=== PATIENT | female | born 1995 | race American Indian/Alaskan Native ===

== ENCOUNTER 2016-11-07 15:36 | Emergency (ER) | payer SELFPAY ==
--- NOTE | 2016-11-07 17:04 | Emergency Department Report ---
<NAPOLEONMELL M - Last Filed: 11/07/16 19:12> ED Female HPI - General Chief complaint: Urogenital-Female Stated complaint: POSS /VAG ITCHING/VAG PAIN Time Seen by Provider: 11/07/16 16:47 Source: patient Mode of arrival: Ambulatory Limitations: No Limitations - History of Present Illness Initial comments: PT states she is afraid she is . PT states her period is a few days late. PT states she is having thin white vaginal discharge with an odor. PT also reports rash to vagina and vagina pain. PT states her symptoms started shortly after applying deodorant to her vagina. PT states she did this so she would not sweat. PT c/o 02/14 vaginal pain PT denies hx of pelvic infections PT denies partner having symptoms MD Complaint: vaginal discharge Onset/Timin -: Gradual, week(s) Location: labia Severity: severe Severity scale (0 -10): 10 Quality: burning Consistency: constant Improves with: none Worsens with: none Are you Now?: Yes (possible ) Last Menstrual Period: 10/02/16 EDC: 07/09/17 Associated Symptoms: vaginal discharge, rash. denies: abdominal pain, nausea/ vomiting, loss of appetite, dysuria - Related Data Sexually active: Yes : 3 Para: 1 Previous Rx's Medication Instructions Recorded Last Taken Type Vit No.130/Iron/FA 1 each PO QDAY #30 tablet 11/07/16 Unknown Rx [ Tablet] Allergies Allergy/AdvReac Type Severity Reaction Status Date / Time No Known Allergies Allergy Unverified 11/07/16 16:02 ED Review of Systems ROS: Stated complaint: POSS /VAG ITCHING/VAG PAIN Other details as noted in HPI Comment: All other systems reviewed and negative Constitutional: denies: chills, fever Gastrointestinal: denies: abdominal pain, nausea, vomiting Genitourinary: discharge, abnormal menses. denies: dysuria Skin: rash ED Past Medical Hx - Past Medical History Previous Medical History?: No - Surgical History Past Surgical History?: No - Social History Smoking Status: Never Smoker Substance Use Type: Alcohol, Non Opiate Pain - Medications Home Medications: Home Medications Medication Instructions Recorded Confirmed Last Taken Type Vit No.130/Iron/FA 1 each PO QDAY #30 tablet 11/07/16 Unknown Rx [ Tablet] ED Physical Exam - General Limitations: No Limitations General appearance: alert, in no apparent distress, obese - Head Head exam: Present: atraumatic, normocephalic, normal inspection - Eye Eye exam: Present: normal appearance, PERRL, EOMI. Absent: conjunctival injection - ENT ENT exam: Present: normal exam, mucous membranes moist, normal external ear exam - Neck Neck exam: Present: normal inspection, full ROM. Absent: tenderness, lymphadenopathy - Respiratory Respiratory exam: Present: normal lung sounds bilaterally. Absent: respiratory distress, wheezes, chest wall tenderness - Cardiovascular Cardiovascular Exam: Present: regular rate, normal rhythm, normal heart sounds - GI/Abdominal GI/Abdominal exam: Present: soft, normal bowel sounds. Absent: tenderness - External exam: Present: lesions (1 lesion noted to labia. 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 ). Absent: erythema, swelling, lacerations, ecchymosis, bleeding Speculum exam: Present: vaginal discharge. Absent: cervical discharge, vaginal bleeding, foreign body Bi-manual exam: Present: normal bi-manual exam. Absent: cervical motion tendernes, adnexal tenderness, adnexal mass, uterine enlargement, uterine tenderness - Extremities Exam Extremities exam: Present: normal inspection, full ROM - Back Exam Back exam: Present: normal inspection, full ROM. Absent: tenderness, CVA tenderness (R), CVA tenderness (L) - Neurological Exam Neurological exam: Present: alert, oriented X3, normal gait - Psychiatric Psychiatric exam: Present: normal affect, normal mood - Skin Skin exam: Present: warm, dry, intact. Absent: vesicles ED Course Vital Signs 11/07/16 11/07/16 16:02 21:07 Temperature 98.4 F Pulse Rate 87 75 Respiratory 20 18 Rate Blood Pressure 114/73 Blood Pressure 125/64 [Left] O2 Sat by Pulse 100 100 Oximetry - Reevaluation(s) Reevaluation #1: 11/07/16 17:05 PT aware of plan of care Reevaluation #2: 11/07/16 18:21 PT aware of urine result and plan of care. Reevaluation #3: 11/07/16 19:13 EDWIN Cespedes to follow beta quant, CMP and US - Pulse Oximetry Interpretation Digit-Finger Initial Pulse Oximetry Readin Actions Taken: none ED Medical Decision Making - Lab Data Result diagrams: 11/07/16 18:31 - Differential Diagnosis , std, vaginitis Critical care attestation.: If time is entered above; I have spent that time in minutes in the direct care of this critically ill patient, excluding procedure time. ED Disposition Clinical Impression: Vaginal discharge, Lesion of labia, Positive test, Threatened miscarriage in early , Ovarian cyst, Abdominal pain during in first trimester Disposition: - TO HOME OR SELFCARE Condition: Stable Instructions: Threatened Miscarriage (ED), (ED), Ovarian Cyst (ED), Abdominal Pain in (ED) Additional Instructions: Do not apply deodorant to your labia Please return to the emergency room if he cannot get appointment with [facility] doctor in 5-7 days for repeat ultrasound and blood work. Please call [facility] to schedule an appointment. take vitamin. Prescriptions: Vit No.130/Iron/FA [ Tablet] 1 each PO QDAY #30 tablet Referrals: PRIMARY CAREMD [Primary Care Provider] - 3-5 Days NICOLETTE PEACE MD [Staff Physician] - 3-5 Days [facility] [Outside] - 3-5 Days Forms: Work/School Release Form(ED) <STIVEN RAMOS - Last Filed: 11/08/16 07:31> ED Course - Reevaluation(s) Reevaluation #4: 11/07/16 21:01 I spoke with patient regarding ultrasound results and the need to return in 5-7 days to have repeat ultrasound and lab work done. Aware that there are statuses threatened miscarriage. I also started updated her on right ovarian cyst. ED Medical Decision Making - Lab Data Result diagrams: 11/07/16 18:31 11/07/16 18:31 Lab Results 11/07/16 11/07/16 11/07/16 Range/Units 17:45 18:19 18:31 WBC 5.3 (4.5-11.0) K/mm3 RBC 4.73 (3.65-5.03) M/mm3 Hgb 12.7 (10.1-14.3) gm/dl Hct 38.8 (30.3-42.9) % MCV 82 (79-97) fl MCH 27 L (28-32) pg MCHC 33 (30-34) % RDW 13.9 (13.2-15.2) % Plt Count 218 (140-440) K/mm3 Lymph % (Auto) 32.3 (13.4-35.0) % Atlantic % (Auto) 10.9 H (0.0-7.3) % Eos % (Auto) 2.0 (0.0-4.3) % Baso % (Auto) 1.1 (0.0-1.8) % Lymph # 1.7 (1.2-5.4) K/mm3 Atlantic # 0.6 (0.0-0.8) K/mm3 Eos # 0.1 (0.0-0.4) K/mm3 Baso # 0.1 (0.0-0.1) K/mm3 Seg Neutrophils % 53.7 (40.0-70.0) % Seg Neutrophils # 2.9 (1.8-7.7) K/mm3 Sodium (137-145) mmol/L Potassium (3.6-5.0) mmol/L Chloride (98-107) mmol/L Carbon Dioxide (22-30) mmol/L Anion Gap mmol/L BUN (7-17) mg/dL Creatinine (0.7-1.2) mg/dL Estimated GFR ml/min BUN/Creatinine Ratio % Glucose (65-100) mg/dL Calcium (8.4-10.2) mg/dL Total Bilirubin (0.1-1.2) mg/dL AST (5-40) units/L ALT (7-56) units/L Alkaline Phosphatase (35-129) units/L Total Protein (6.3-8.2) g/dL Albumin (3.9-5) g/dL Albumin/Globulin Ratio % HCG, Quant (0-4) mIU/mL Urine Color Yellow (Yellow) Urine Turbidity Clear (Clear) Urine pH 6.0 (5.0-7.0) Ur Specific [place] 1.025 (1.003-1.030) Urine Protein <15 mg/dl (Negative) mg/dL Urine Glucose (UA) Neg (Negative) mg/dL Urine Ketones Neg (Negative) mg/dL Urine Blood Neg (Negative) Urine Nitrite Neg (Negative) Ur Reducing Substances Not Reportable Urine Bilirubin Neg (Negative) Urine Ictotest Not Reportable Urine Urobilinogen 4.0 (<2.0) mg/dL Ur Leukocyte Esterase Tr (Negative) Urine WBC (Auto) 3.0 (0.0-6.0) /HPF Urine RBC (Auto) 6.0 (0.0-6.0) /HPF U Epithel Cells (Auto) 12.0 (0-13.0) /HPF Urine Mucus 3+ /HPF Urine HCG, Qual Positive A (Negative) Blood Type O POSITIVE 11/07/16 11/07/16 Range/Units 18:31 18:31 WBC (4.5-11.0) K/mm3 RBC (3.65-5.03) M/mm3 Hgb (10.1-14.3) gm/dl Hct (30.3-42.9) % MCV (79-97) fl MCH (28-32) pg MCHC (30-34) % RDW (13.2-15.2) % Plt Count (140-440) K/mm3 Lymph % (Auto) (13.4-35.0) % Atlantic % (Auto) (0.0-7.3) % Eos % (Auto) (0.0-4.3) % Baso % (Auto) (0.0-1.8) % Lymph # (1.2-5.4) K/mm3 Atlantic # (0.0-0.8) K/mm3 Eos # (0.0-0.4) K/mm3 Baso # (0.0-0.1) K/mm3 Seg Neutrophils % (40.0-70.0) % Seg Neutrophils # (1.8-7.7) K/mm3 Sodium 138 (137-145) mmol/L Potassium 3.6 (3.6-5.0) mmol/L Chloride 101.7 (98-107) mmol/L Carbon Dioxide 21 L (22-30) mmol/L Anion Gap 19 mmol/L BUN 9 (7-17) mg/dL Creatinine 0.5 L (0.7-1.2) mg/dL Estimated GFR > 60 ml/min BUN/Creatinine Ratio 18.00 % Glucose 81 (65-100) mg/dL Calcium 8.7 (8.4-10.2) mg/dL Total Bilirubin 0.40 (0.1-1.2) mg/dL AST 15 (5-40) units/L ALT 16 (7-56) units/L Alkaline Phosphatase 49 (35-129) units/L Total Protein 7.3 (6.3-8.2) g/dL Albumin 4.3 (3.9-5) g/dL Albumin/Globulin Ratio 1.4 % HCG, Quant 4044 H (0-4) mIU/mL Urine Color (Yellow) Urine Turbidity (Clear) Urine pH (5.0-7.0) Ur Specific [place] (1.003-1.030) Urine Protein (Negative) mg/dL Urine Glucose (UA) (Negative) mg/dL Urine Ketones (Negative) mg/dL Urine Blood (Negative) Urine Nitrite (Negative) Ur Reducing Substances Urine Bilirubin (Negative) Urine Ictotest Urine Urobilinogen (<2.0) mg/dL Ur Leukocyte Esterase (Negative) Urine WBC (Auto) (0.0-6.0) /HPF Urine RBC (Auto) (0.0-6.0) /HPF U Epithel Cells (Auto) (0-13.0) /HPF Urine Mucus /HPF Urine HCG, Qual (Negative) Blood Type Wet prep revealed no clue cell not trichomonas and no yeast chl is pending - Radiology Data Radiology results: report reviewed Ultrasound OB transvaginal and pelvic reveal patient with possible early IUP at 5 weeks and 4 days gestation age estimated date of delivery based on this regimen is July 06, 2017. pole was not yet identified and viability is uncertain. There is 1.1 cm implantation bleed. Recommend 5-7 days repeat ultrasound and beta hCG. Patient with right ovarian complex cyst in left ovary is normal - Medical Decision Making ED course: Patient notified of ultrasound report and status. I informed her that she needs to return to hospital in 5-7 days to have repeat ultrasound and repeat hormone tests done. Slit for her that she has cyst on her right ovary. pT denies any pain at present and said she will find out [facility] doctor to follow-up with. I discussed with her she cannot find OB/ SECURITIES ATTORNEY within 5-7 days she needs to come back to the emergency room for repeat ultrasound and blood work. Voice understanding and discharged home in stable condition. ED Disposition Is pt being admited?: No Does the pt Need Aspirin: No
[2016-11-07 18:14] LABS: Bilirubin,Urine NEG (Negative); Blood,Urine NEG (Negative); Ketones,Urine NEG (Negative); Leukocyte Esterase,Urine TR (Negative); Mucus,Urine 3+ /HPF; Nitrite,Urine NEG (Negative); Protein,Urine <15 mg/dL mg/dL (Negative)
[2016-11-07 19:09] LABS: Basophils % (Auto) 1.1 % (0.0-1.8); Hematocrit 38.8 % (30.3-42.9); Hemoglobin 12.7 gm/dl (10.1-14.3); Mean Corpuscular HGB Conc 33 % (30-34); Mean Corpuscular Hemoglobin 27 pg (28-32); Mean Corpuscular Volume 82 fl (79-97); Platelet Count 218 K/mm3 (140-440); Red Blood Count 4.73 M/mm3 (3.65-5.03); Red Cell Distribution Width 13.9 % (13.2-15.2); White Blood Count 5.3 K/mm3 (4.5-11.0)
[2016-11-07 19:16] LABS: Alanine Aminotransferase 16 units/L (7-56); Albumin 4.3 g/dL (3.9-5); Albumin/Globulin Ratio 1.4 %; Alkaline Phosphatase 49 units/L (35-129); Anion Gap 19 mmol/L; Blood Urea Nitrogen 9 mg/dL (7-17); Calcium 8.7 mg/dL (8.4-10.2); Carbon Dioxide 21 mmol/L (22-30); Chloride 101.7 mmol/L (98-107); Glucose 81 mg/dL (65-100); Potassium 3.6 mmol/L (3.6-5.0); Sodium 138 mmol/L (137-145); Total Protein 7.3 g/dL (6.3-8.2)
--- NOTE | 2016-11-07 19:56 | Ultrasound Report ---
FINAL REPORT PROCEDURE: US OB TRANSVAGINAL TECHNIQUE: Real-time transabdominal and transvaginal sonography of the uterus, placenta, amniotic fluid, adnexa, and fetus was performed with image documentation. Measurements were obtained to determine age/size. M-mode Doppler was used to document heartbeat. CPT 84218 and 29129 HISTORY: , pain COMPARISON: No prior studies are available for comparison. FINDINGS: ADDITIONAL GESTATION: None. There is suggestion of a slightly irregular shaped gestational sac with yolk sac. Mean sac diameter is 8.1 millimeters corresponding to 5 weeks 4 days gestational age. Implantation bleed is seen adjacent to this area measuring approximately 1.1 cm in greatest dimension. pole is not yet identified and viability is uncertain. Right ovary measures 3.2 x 2.1 x 2.9 cm. It contains a 2.5 cm complex cyst. Left ovary measures 3.3 x 1.5 x 1.7 cm. No free pelvic fluid is seen. IMPRESSION: Possible early IUP is seen at 5 weeks 4 days gestational age. Estimated date of delivery based on this measurement is July 06, 2017. However, pole is not yet identified and viability is uncertain. Furthermore, there is a 1.1 cm implantation bleed. Correlation with serial quantitative beta HCG levels is recommended and repeat ultrasound in 5-7 days is suggested.
--- NOTE | 2016-11-07 19:58 | Ultrasound Report ---
FINAL REPORT PROCEDURE: US OB \T\lt; = 14 WEEKS FETUS TECHNIQUE: Real-time transabdominal and transvaginal sonography of the uterus, placenta, amniotic fluid, adnexa, and fetus was performed with image documentation. Measurements were obtained to determine age/size. M-mode Doppler was used to document heartbeat. CPT 92648 and 97583 HISTORY: , pain COMPARISON: No prior studies are available for comparison. FINDINGS: ADDITIONAL GESTATION: None. There is suggestion of a slightly irregular shaped gestational sac with yolk sac. Mean sac diameter is 8.1 millimeters corresponding to 5 weeks 4 days gestational age. Implantation bleed is seen adjacent to this area measuring approximately 1.1 cm in greatest dimension. pole is not yet identified and viability is uncertain. Right ovary measures 3.2 x 2.1 x 2.9 cm. It contains a 2.5 cm complex cyst. Left ovary measures 3.3 x 1.5 x 1.7 cm. No free pelvic fluid is seen. IMPRESSION: Possible early IUP is seen at 5 weeks 4 days gestational age. Estimated date of delivery based on this measurement is July 06, 2017. However, pole is not yet identified and viability is uncertain. Furthermore, there is a 1.1 cm implantation bleed. Correlation with serial quantitative beta HCG levels is recommended and repeat ultrasound in 5-7 days is suggested.
[2016-11-07 21:07] VITALS: BP 125/64
== END 2016-11-07 21:08 | disposition home or self-care (01) ==
LOC: ED 15:36
DX: O20.0 Threatened abortion (principal); O34.81 Maternal care for other abnormalities of pelvic organs, first trimester; N83.201 Unspecified ovarian cyst, right side; Z3A.01 Less than 8 weeks gestation of pregnancy
CPT/HCPCS: 36415; 76801; 76817; 80053; 81001; 81025; 84702; 85025; 86900; 86901; 87210; 87255; 87591; 99284

== ENCOUNTER 2016-12-10 19:09 | Emergency (ER) | payer OTHER ==
[2016-12-10 19:46] VITALS: BP 113/70
[2016-12-10] MEDS ORDERED: BENADRYL PO ONE (20:35)
--- NOTE | 2016-12-10 20:43 | Emergency Department Report ---
ED Rash HPI - HPI Chief Complaint: Skin Rash Stated Complaint: RASH/ 10 PREG Time Seen by Provider: 12/10/16 20:07 Duration: 2weeks Location: Neck, Back, Upper Extremities, Lower Extremities Rash Symptoms: Yes Itching, No Facial Swelling, No Tongue/Oral Swelling, No Breathing Difficulties, No Choking Sensation, No Wheezing/Dyspnea, No Peeling, No Blistering, No Fever, No Lightheaded, No Malaise, No Myalgias Severity: mild Other History: 21-year-old female past medical history obesity presents with complaint of several weeks approximately 1 month of itchiness and itchy rash to abdomen back upper and lower extremities. Patient has not been taking any medicines for the itchiness or discomfort. Denies any fevers or chills denies any dysuria or vaginal discharge no vaginal bleeding. Patient is currently 10 weeks . States she has not followed up with her [facility]ATING MECH[facility]IC. Also complaining of some lower abdominal discomfort. ED Review of Systems ROS: Stated complaint: RASH/ 10 PREG Other details as noted in HPI Constitutional: denies: chills, fever Eyes: denies: eye pain, eye discharge, vision change ENT: denies: ear pain, throat pain Respiratory: denies: cough, shortness of breath, wheezing Cardiovascular: denies: chest pain, palpitations Endocrine: no symptoms reported Gastrointestinal: denies: abdominal pain, nausea, diarrhea Genitourinary: denies: urgency, dysuria, discharge Musculoskeletal: denies: back pain, joint swelling, arthralgia Skin: as per HPI, rash, pruritus. denies: lesions Neurological: denies: headache, weakness, paresthesias Psychiatric: denies: anxiety, depression Hematological/Lymphatic: denies: easy bleeding, easy bruising ED Past Medical Hx - Past Medical History Previous Medical History?: No - Surgical History Past Surgical History?: No - Social History Smoking Status: Never Smoker Substance Use Type: None - Medications Home Medications: Home Medications Medication Instructions Recorded Confirmed Last Taken Type Vit No.130/Iron/FA 1 each PO QDAY #30 tablet 11/07/16 Unknown Rx [ Tablet] Clotrimazole 1% [Lotrimin 1%] 15 gm TP BID PRN #1 tube 12/10/16 Unknown Rx Hydrocortisone 1% [Hydrocortisone 1 applicatio TP TID PRN #1 tube 12/10/16 Unknown Rx 1% CREAM] Nitrofurantoin [place]/M-Cryst 100 mg PO Q12HR #14 capsule 12/10/16 Unknown Rx [Macrobid CAP] Potassium Chloride [K-Dur] 20 meq PO BID #4 tab 12/10/16 Unknown Rx diphenhydrAMINE [Benadryl CAP] 25 mg PO Q8HR PRN #20 capsule 12/10/16 Unknown Rx Rash Exam - Exam General: Vital signs noted. No distress. Alert and acting appropriately. HEENT: No Periorbital Edema, No Conjuctival Injection, No Chemosis, No Perioral Edema, No Tongue Edema, No Uvular Edema, No Compromised Airway, No Drooling Lungs: Yes Good Air Exchange (Normal Breath Sounds), No Wheezes, No Ronchi, No Stridor, No Cough, No Labored Respirations, No Retractions, No Use of Accessory Muscles, No Other Abnormal Lung Sounds Heart: Yes Regular, No Murmur Skin: Yes Maculopapular Rash (evidence of tinea corporis on abdomen), No Urticarial Rash, No Morbilliform rash, No Bulla(e), No Excoriations, No Weeping , No Tenderness, No Erythema, No Edema, No Encrustations, No Other Other: Positive: Abdomen Normal, Neurologic Normal, Musculoskeletal Normal ED Course Vital Signs 12/10/16 19:37 Temperature 97.9 F Pulse Rate 85 Respiratory 16 Rate Blood Pressure 113/70 Blood Pressure 113/70 [Left] O2 Sat by Pulse 100 Oximetry ED Medical Decision Making - Lab Data Result diagrams: 12/10/16 20:50 12/10/16 20:50 - Medical Decision Making A/P: Pruritus of , morning sickness, tinea corporis, hypokalemia, possible asymptomatic bacteriuria 1-Benadryl when necessary, topical hydrocortisone, I advised patient to have her potassium rechecked within the next week and to consume foods and liquids which and potassium 2-clotrimazole cream 3-follow up with [facility]CH[facility] 4-Macrobid twice a day 7 days, urine has large leukocytes 5-patient had wet prep and Chlamydia gonorrhea test which were -72 hours ago. Ultrasound shows normal fetus at 10 weeks Critical care attestation.: If time is entered above; I have spent that time in minutes in the direct care of this critically ill patient, excluding procedure time. ED Disposition Clinical Impression: Morning sickness pruritus Qualifiers: Trimester: first trimester Qualified Code(s): O99.711 - Diseases of the skin and subcutaneous tissue complicating , first trimester Disposition: TO HOME OR SELFCARE Is pt being admited?: No Does the pt Need Aspirin: No Condition: Stable Instructions: Morning Sickness (ED), Tinea Corporis (ED), Itchy Skin (ED) Prescriptions: Clotrimazole 1% [Lotrimin 1%] 15 gm TP BID PRN #1 tube PRN Reason: Itching diphenhydrAMINE [Benadryl CAP] 25 mg PO Q8HR PRN #20 capsule PRN Reason: Itching Hydrocortisone 1% [Hydrocortisone 1% CREAM] 1 applicatio TP TID PRN #1 tube PRN Reason: Itching Nitrofurantoin [place]/M-Cryst [Macrobid CAP] 100 mg PO Q12HR #14 capsule Potassium Chloride [K-Dur] 20 meq PO BID #4 tab Referrals: [facility] [Provider Group] - 3-5 Days DIONICIO BARRETO MD [Staff Physician] - 3-5 Days Forms: Work/School Release Form(ED) Time of Disposition: 22:45
[2016-12-10 21:22] LABS: Basophils % (Auto) 0.2 % (0.0-1.8); Eosinophils % (Auto) 6.1 % (0.0-4.3); Hematocrit 36.2 % (30.3-42.9); Hemoglobin 11.9 gm/dl (10.1-14.3); Mean Corpuscular HGB Conc 33 % (30-34); Mean Corpuscular Hemoglobin 27 pg (28-32); Mean Corpuscular Volume 83 fl (79-97); Platelet Count 184 K/mm3 (140-440); Red Blood Count 4.39 M/mm3 (3.65-5.03); Red Cell Distribution Width 13.8 % (13.2-15.2); White Blood Count 5.1 K/mm3 (4.5-11.0)
[2016-12-10 21:24] LABS: Alanine Aminotransferase 10 units/L (7-56); Albumin 3.7 g/dL (3.9-5); Albumin/Globulin Ratio 1.2 %; Alkaline Phosphatase 40 units/L (35-129); Anion Gap 16 mmol/L; BUN/Creatinine Ratio 11.66; Blood Urea Nitrogen 7 mg/dL (7-17); Calcium 8.6 mg/dL (8.4-10.2); Carbon Dioxide 22 mmol/L (22-30); Chloride 102.3 mmol/L (98-107); Creatine Kinase 80 units/L (30-135); Glucose 98 mg/dL (65-100); Potassium 3.1 mmol/L (3.6-5.0); Sodium 137 mmol/L (137-145); Total Protein 6.8 g/dL (6.3-8.2)
[2016-12-10 21:48] LABS: Bilirubin,Direct < 0.2 mg/dL (0-0.2); Bilirubin,Indirect 0.1 mg/dL
[2016-12-10] MEDS ORDERED: REGLAN PO ONE (22:07)
[2016-12-10 22:25] LABS: Bacteria,Urine 1+ /HPF (Negative); Bilirubin,Urine NEG (Negative); Blood,Urine NEG (Negative); Ketones,Urine NEG (Negative); Leukocyte Esterase,Urine TR (Negative); Mucus,Urine 3+ /HPF; Nitrite,Urine NEG (Negative); Protein,Urine <15 mg/dL mg/dL (Negative)
--- NOTE | 2016-12-10 22:34 | Ultrasound Report ---
FINAL REPORT PROCEDURE: US OB TRANSVAGINAL TECHNIQUE: Real-time transvaginal sonography of the uterus, placenta, amniotic fluid, adnexa, and fetus was performed with image documentation. Measurements were obtained to determine age/size. M-mode Doppler was used to document heartbeat. CPT 34997 HISTORY: abdominal pain COMPARISON: No prior studies are available for comparison. FINDINGS: CRL: 30.9mm, which corresponds to a gestational age of: 10weeks, 0 days. Yolk Sac: Normal. Embryonic Cardiac Activity: 158 beats per minute Gestational Sac: Normal. Right Ovary: 2.7 x 2.4 x 2.1 centimeters with normal appearance Left Ovary: 2.8 x 1.7 x 2.1 centimeters with normal appearance Estimated delivery date: 07/08/2017 Comment: Complete anatomic survey at 18-20 weeks suggested. IMPRESSION: 1. Single living intrauterine gestation at approximately 10 weeks and 0 days 2. EDC by US 07/08/2017.
--- NOTE | 2016-12-10 22:34 | Ultrasound Report ---
FINAL REPORT PROCEDURE: US OB \T\lt; = 14 WEEKS FETUS TECHNIQUE: Real-time transabdominal sonography of the uterus, placenta, amniotic fluid, adnexa, and fetus was performed with image documentation. Measurements were obtained to determine age/size. M-mode Doppler was used to document heartbeat. CPT 36537 HISTORY: abdominal pain COMPARISON: No prior studies are available for comparison. FINDINGS: CRL: 30.9 mm, which corresponds to a gestational age of: 10 weeks, 0 days. Yolk Sac: Normal. Embryonic Cardiac Activity: 158 beats per minute Gestational Sac: Normal. Amniotic fluid: Normal. Cervix: Normal. Right Ovary: Not well visualized Left Ovary: Not well visualized Estimated delivery date: 07/08/2017 Uterus and adnexa: Normal. IMPRESSION: Single live intrauterine gestation at approximately 10 weeks and 0 days. EDC by US 07/08/2017
[2016-12-10] MEDS ORDERED: K-DUR PO ONE (22:40)
== END 2016-12-10 23:32 | disposition home or self-care (01) ==
LOC: ED 19:09
DX: O26.891 Other specified pregnancy related conditions, first trimester (principal); L29.9 Pruritus, unspecified; Z3A.10 10 weeks gestation of pregnancy
CPT/HCPCS: 36415; 76801; 76817; 80048; 80074; 81001; 82550; 84702; 85025; 99284

== ENCOUNTER 2018-05-20 11:04 | Emergency (ER) | payer SELFPAY ==
[2018-05-20 11:13] VITALS: BP 110/64
[2018-05-20] MEDS ORDERED: IBUPROFEN ONE (11:28)
--- NOTE | 2018-05-20 11:34 | Emergency Department Report ---
HPI - General Chief Complaint: Medical Clearance Time Seen by Provider: 05/20/18 11:21 - HPI HPI: This is a 23-year-old female well-nourished well-developed in no acute distress. Patient's ear completely and in no lumps behind her ears and at the size of her neck. She states she was diagnosed with enlarged lymph nodes. She has not taken any medication. Patient presents to the emergency room stating that she wants to make sure it is not cancer. Pain is toward a 10 on a with touch no pain without touch. Denies any fever or chills or nausea or vomiting. Denies any earache or headache. Denies any nasal congestion or runny nose denies any shortness of breath or chest pain. She reports that she has night sweats. She appeared was 04/27/2018. She reports sore throats at 2/10. No medication taken prior to coming to the emergency room. Pain is worse with swallowing and no alleviating factors. Denies any recent weight loss for the last 3 months. ED Past Medical Hx - Past Medical History Previous Medical History?: No - Surgical History Past Surgical History?: No - Family History Family history: hypertension - Social History Smoking Status: Never Smoker Substance Use Type: None - Medications Home Medications: Home Medications Medication Instructions Recorded Confirmed Last Taken Type Vit No.130/Iron/Folic 1 each PO QDAY #30 tablet 11/07/16 Unknown Rx [ Tablet] Clotrimazole 1% [Lotrimin 1%] 15 gm TP BID PRN #1 tube 12/10/16 Unknown Rx Hydrocortisone 1% [Hydrocortisone 1 applicatio TP TID PRN #1 tube 12/10/16 Unknown Rx 1% CREAM] Nitrofurantoin [place]/M-Cryst 100 mg PO Q12HR #14 capsule 12/10/16 Unknown Rx [Macrobid CAP] Potassium Chloride [K-Dur] 20 meq PO BID #4 tab 12/10/16 Unknown Rx diphenhydrAMINE [Benadryl CAP] 25 mg PO Q8HR PRN #20 capsule 12/10/16 Unknown Rx Amoxicillin [Amoxicillin TAB] 875 mg PO BID 10 Days #20 tablet 05/20/18 Unknown Rx Cetirizine HCl [ZyrTEC] 10 mg PO QAM 14 Days #14 capsule 05/20/18 Unknown Rx Fluticasone [Flonase] 1 spray NS QDAY 14 Days #1 bottle 05/20/18 Unknown Rx Ibuprofen [Motrin] 800 mg PO Q8HR PRN #12 tablet 05/20/18 Unknown Rx ED Review of Systems ROS: Stated complaint: PAINFUL LUMP BEHIND EAR AND NECK Other details as noted in HPI Constitutional: denies: chills, fever Eyes: denies: eye discharge ENT: throat pain. denies: ear pain, congestion Respiratory: denies: cough, shortness of breath, SOB with exertion, SOB at rest, stridor, wheezing Cardiovascular: denies: chest pain, palpitations, dyspnea on exertion, edema, syncope, paroxysmal nocturnal dyspnea Gastrointestinal: denies: abdominal pain, nausea, vomiting, constipation, hematemesis, hematochezia Genitourinary: denies: urgency, dysuria, hematuria, abnormal menses, dyspareunia Musculoskeletal: denies: back pain, joint swelling, arthralgia, myalgia Skin: denies: rash Neurological: denies: headache, numbness, paresthesias, abnormal gait, vertigo Physical Exam - Physical Exam Vital Signs: Vital Signs 05/20/18 11:09 Temperature 98.2 F Pulse Rate 90 Respiratory 16 Rate Blood Pressure 110/64 O2 Sat by Pulse 99 Oximetry General: This is a 23-year-old female well-nourished well-developed in no acute distress. Physical Exam: Head: Normocephalic atraumatic Ears:BIateral TM congested without erythema and loss of bony landmarks. Hua EAC with normal exam. No mastoid bone tenderness. Lymph nodes: Positive lymphadenopathy to posterior articular, posterior occipital and bilateral neck. Tenderness to palpate. Mouth: Moist, pharyngeal erythema without exudate . UVULA midline and oral airways patent. No peritonsillar abscess Neck: Nontender to palpate, supple, normal range of motion. Positive adenopathy. No c-spine tenderness. Nose: Bilateral nasal mucosa congested/erythema with clear drainage. Maxillary and frontal sinuses non-tender to palpate. Eyes: Bilateral Sclerae and conjunctiva without injection. Bilateral pupils equal and reactive to light. Bilateral lids are normal. Normal accommodation.BEOMI Lungs: Clear to auscultate bilaterally, no rhonchi wheezes or rales. Normal work of breathing and no chest wall tenderness CV: S1, S2. Regular rate and rhythm negative murmur. Capillary refill is less than 3 seconds Abdomen: Nontender to palpation in all quadrants: No guarding or rebound tenderness. Positive bowel sounds in all quadrants Extremity: No clubbing, cyanosis or edema. +2 pulses in all extremities and no neurovascular compromise Skin: Clean dry and intact, no rashes or lesions Psych: Normal mood and behavior ED Course Vital Signs 05/20/18 11:09 Temperature 98.2 F Pulse Rate 90 Respiratory 16 Rate Blood Pressure 110/64 O2 Sat by Pulse 99 Oximetry - Reevaluation(s) Reevaluation #1: 05/20/18 12:36 Patient given Motrin 800 mg by mouth and emergency room. Rapid strep is negative ED Medical Decision Making - Lab Data Lab Results 05/20/18 Range/Units 11:30 Group A Strep Rapid Negative (Negative) - Medical Decision Making This is a 23-year-old female here report that she has enlarged lymph nodes which she was diagnosed with an another facility but she does not have any primary care doctor nor does she have health insurance. She says she is here to be checked to see if she has cancer. I discussed the patient that her shortness is negative cultures are pending. I discussed after she has either inflammation of her lungs still or or multiple enlarged lymph nodes at various areas she tends to have STD testing to include HIV. She voiced understanding. I will refer patient to multiple outpatient clinics for further evaluation and treatment. I also discussed with up with her on antibiotic and Motrin. She received Motrin for pain emergency room. Patient is stable and discharged home in stable condition with prescription for Motrin and amoxicillin. She is to follow up with outpatient primary care clinic in 2-3 days - Differential Diagnosis viral versus bacterial infection, adenitis Critical care attestation.: If time is entered above; I have spent that time in minutes in the direct care of this critically ill patient, excluding procedure time. ED Disposition Clinical Impression: Adenitis, acute URI (upper respiratory infection) Qualifiers: URI type: unspecified URI Qualified Code(s): J06.9 - Acute upper respiratory infection, unspecified Disposition: DC-01 TO HOME OR SELFCARE Is pt being admited?: No Does the pt Need Aspirin: No Condition: Stable Instructions: Pharyngitis (ED), Upper Respiratory Infection (ED), Adenitis (ED) Additional Instructions: follow-up was completed E clinic outpatient primary care for evaluation of enlarged lymph nodes. Follow-up in 2-3 days Take medication as prescribed Increase her fluid intake The multiple community referral given to use and also on discharge report A few condition worsens, return to the emergency room Prescriptions: Amoxicillin [Amoxicillin TAB] 875 mg PO BID 10 Days #20 tablet Cetirizine HCl [ZyrTEC] 10 mg PO QAM 14 Days #14 capsule Fluticasone [Flonase] 1 spray NS QDAY 14 Days #1 bottle Ibuprofen [Motrin] 800 mg PO Q8HR PRN #12 tablet PRN Reason: pain and inflammation Referrals: [facility] [place] [Outside] - 3-5 Days [facility] [Outside] - 3[facility] Forms: Work/School Release Form(ED)
[2018-05-20] MEDS ORDERED: IBUPROFEN PO ONE (11:35)
== END 2018-05-20 12:56 | disposition home or self-care (01) ==
LOC: ED 11:04
DX: I88.9 Nonspecific lymphadenitis, unspecified (principal)
CPT/HCPCS: 87116; 87430; 99283